=== PATIENT | male | born 1945 | race African-American/Black ===

== ENCOUNTER 2024-10-20 14:15 | Emergency (ER) | payer MEDICARE ==
[~2024-10-20] VITALS: Ht 162.6 cm; Wt 75.0 kg
[~2024-10-20 14:15] MED LIST: GABA-1216 PO; HYDR-4061 PO; IBUP-1493 PO; NAPR-1196 PO; SOLI5 PO
[2024-10-20 14:18] VITALS: TEMP 98.1
[2024-10-20] MEDS ORDERED: FINA5TAB41 PO (14:20)
[2024-10-20] MEDS ORDERED: TAMS0.4C94 PO (14:20)
[2024-10-20] MEDS ORDERED: HYDR-4069 PO (14:20)
[2024-10-20 15:10] LABS: PLATELET COUNT (AUTO) 178 K/uL (150-450); RED BLOOD CELL COUNT(AUTO) 4.28 MIL/uL (4.50-5.90); RED CELL DISTRIBUTION WIDTH 13.8 % (11.5-14.5); WHITE BLOOD COUNT (AUTO) 6.2 K/uL (4.5-11.0)
[2024-10-20 15:19] LABS: CALCIUM, TOTAL 8.5 mg/dL (8.8-10.5); CREATININE 1.12 mg/dL (0.60-1.30); GLOMERULAR FILTR. RATE CALC > 60 mL/min (>60); GLUCOSE,RANDOM 97 mg/dL (70-110); SODIUM SERUM 139 mmol/L (136-145); UREA NITROGEN, BLOOD 11 mg/dL (7-18)
[2024-10-20 15:24] LABS: ASPARTATE AMINOTRANSFERASE 19 U/L (15-37); TOTAL PROTEIN, SERUM 7.2 g/dL (6.4-8.2)
[2024-10-20 15:48] LABS: APPEARANCE,URINE CLEAR (CLEAR); GLUCOSE, URINE (UA) NEGATIVE (NEGATIVE); LEUKOCYTE ESTERASE ,URINE NEGATIVE (NEGATIVE); NITRATE,URINE NEGATIVE (NEGATIVE); OCCULT BLOOD,URINE NEGATIVE (NEGATIVE); SPECIFIC GRAVITIY, URINE 1.014 (1.003-1.030)
[2024-10-20] MEDS ORDERED: DOXY-354 PO (18:08)
[2024-10-20 18:10] VITALS: BP 128/69; PULSE 80; RESP 18; O2SAT 100
[2024-10-20] MEDS: DOXYCYCLINE HYCLATE 100 MG TABLET PO ONE (18:15)
== END 2024-10-20 18:26 | disposition home or self-care (01) ==
LOC: EMS 14:37
DX: N50.9 Disorder of male genital organs, unspecified (principal); F32.A Depression, unspecified; N40.0 Benign prostatic hyperplasia without lower urinary tract symptoms; Z88.0 Allergy status to penicillin; Z91.013 Allergy to seafood
CPT/HCPCS: 80053; 81003; 85025; 86592; 87389; 87491; 87591; 99283